=== PATIENT | male | born 1960 | race Caucasian/White ===

== ENCOUNTER 2018-02-01 08:54 | Day surgery (SDC) | payer BC ==
[2018-01-25 09:59] LABS: HEMATOCRIT 43.7 % (37.9-51.0); HEMOGLOBIN 15.2 g/dL (13.5-17.0); MEAN CORPUSCULAR HEMOGLOBIN 31.2 pg (27.0-33.4); MEAN CORPUSCULAR HGB CONC 34.7 g/dL (32.0-36.0); MEAN CORPUSCULAR VOLUME 90 fl (80-97); PLATELET COUNT 227 10^3/uL (150-450); RED BLOOD COUNT 4.86 10^6/uL (4.35-5.55); RED CELL DISTRIBUTION WIDTH 12.7 % (11.5-14.0); WHITE BLOOD COUNT 4.5 10^3/uL (4.0-10.5)
--- NOTE | 2018-01-25 10:37 | RADIOLOGY REPORT (SQ) ---
EXAM DESCRIPTION: CHEST PA/LATERAL COMPLETED DATE/TIME: 01/25/2018 10:01 am REASON FOR STUDY: PRE-OP COMPARISON: None. EXAM PARAMETERS: NUMBER OF VIEWS: two views TECHNIQUE: Digital Frontal and Lateral radiographic views of the chest acquired. RADIATION DOSE: NA LIMITATIONS: none FINDINGS: LUNGS AND PLEURA: No opacities, masses or pneumothorax. No pleural effusion. MEDIASTINUM AND HILAR STRUCTURES: No masses or contour abnormalities. HEART AND VASCULAR STRUCTURES: Heart normal size. No evidence for failure. BONES: No acute findings. HARDWARE: None in the chest. OTHER: No other significant finding. IMPRESSION: NO SIGNIFICANT RADIOGRAPHIC FINDING IN THE CHEST. TECHNICAL DOCUMENTATION: JOB ID: [id number] [employer]- All Rights Reserved Reading location - IP/workstation name: [email or web address]
--- NOTE | 2018-01-25 13:31 | EKG REPORT ---
SEVERITY:- NORMAL ECG - SINUS RHYTHM : Confirmed by: Emeka Serna MD 25-Jan-2018 13:31:15
[~2018-02-01 08:54] MED LIST: ACETAMINOPHEN 325 MG TABLET PO PRN; CEFAZOLIN 2 GM/D5W RTU 2 GM/50 ML RTUPB IV PRN; LACTATED RINGERS 1000 ML IV PRN
[2018-02-01] MEDS ORDERED: FENTANYL CITRATE INJ/PF 250 MCG/5 ML AMPULE ONE (12:49)
[2018-02-01] MEDS ORDERED: ACETAMINOPHEN 1,000 MG/100 ML RTUPB IV ONE (12:50)
[2018-02-01] MEDS ORDERED: EPHEDRINE SULFATE INJ 50 MG/1 ML AMPULE ONE (12:50)
[2018-02-01] MEDS ORDERED: PROPOFOL INJ 200 MG/20 ML VIAL IV ONE (12:50)
[2018-02-01] MEDS ORDERED: MIDAZOLAM 2 MG/2 ML INJ ONE (12:50)
[2018-02-01] MEDS ORDERED: LIDOCAINE 2% INJ-PF (20 MG/ML) 10 ML AMPUL ONE (12:58)
[2018-02-01] MEDS ORDERED: BUPIVACAINE HCL 0.25 % INJ/PF (2.5 MG/1 ML) 30 ML VIAL ONE (13:13)
[2018-02-01] MEDS ORDERED: PROMETHAZINE HCL INJ 25 MG/1 ML VIAL IV PRN ×2 (14:08)
[2018-02-01] MEDS ORDERED: OXYCODONE-ACETAMINOPHEN 5-325 MG TABLET PO PRN ×2 (14:08)
[2018-02-01] MEDS ORDERED: FENTANYL CITRATE INJ/PF 100 MCG/2 ML AMPUL IV PRN ×3 (14:08)
[2018-02-01] MEDS ORDERED: DIPHENHYDRAMINE HCL 50 MG/ML VIAL IV PRN (14:08)
[2018-02-01] MEDS ORDERED: MORPHINE SULFATE 10 MG/ML INJ IV PRN (14:08)
[2018-02-01] MEDS ORDERED: MEPERIDINE HCL/PF INJ 25 MG/1 ML DISP.SYRIN IV PRN (14:08)
[2018-02-01] MEDS ORDERED: ONDANSETRON HCL INJ/PF 4 MG/2 ML SDV IV PRN (14:08)
[2018-02-01] MEDS ORDERED: NEOSTIGMINE METHYLSULFATE 10 MG/10 ML VIAL ONE (14:45)
[2018-02-01] MEDS ORDERED: KETOROLAC TROMETHAMINE 60 MG/2 ML SDV ONE (14:45)
[2018-02-01] MEDS ORDERED: ONDANSETRON HCL INJ/PF 4 MG/2 ML SDV ONE (14:45)
[2018-02-01] MEDS ORDERED: VECURONIUM BROMIDE INJ 10 MG VIAL IV ONE (14:45)
[2018-02-01] MEDS ORDERED: SUCCINYLCHOLINE CHLORIDE INJ 200 MG/10 ML VIAL ONE (14:45)
[2018-02-01] MEDS ORDERED: GLYCOPYRROLATE 1 MG/5 ML SYRINGE ONE (14:45)
[2018-02-01] MEDS ORDERED: DEXAMETHASONE SOD PHOSPHATE INJ 4 MG/1 ML VIAL ONE (14:45)
[2018-02-01] MEDS: FENTANYL CITRATE INJ/PF 100 MCG/2 ML AMPUL ONE ×2 (15:36→15:49)
--- NOTE | 2018-02-01 15:47 | Discharge Summary ---
Discharge Summary (SDC) - Discharge Final Diagnosis: Bilateral inguinal hernia Date of Surgery: 02/01/18 Discharge Date: 02/01/18 Condition: Stable Discharge Diet: As Tolerated Respiratory Treatments at Home: Deep Breathing/Coughing, Incentive Spirometer Discharge Activity: No Lifting Over 10 Pounds Home Care Assistance: None Needed Report the Following to Your Physician Immediately: Shortness of Breath, Nausea , Vomiting, Increase in Pain, Fever over 101 Degrees, Unusual Bleeding, Redness , Swelling, Warmth
--- NOTE | 2018-02-01 15:56 | Operative Report ---
Nonrecallable Operative Report DATE OF SURGERY: 02/01/18 PREOPERATIVE DIAGNOSIS: Bilateral inguinal hernia POSTOPERATIVE DIAGNOSIS: Bilateral indirect inguinal hernia OPERATION: Robot-assisted laparoscopic bilateral inguinal hernia repair with mesh. SURGEON: HARRISON BURTON ANESTHESIA: GA TISSUE REMOVED OR ALTERED: None COMPLICATIONS: None apparent ESTIMATED BLOOD LOSS: Minimal PROCEDURE: Drains/implants: Right and left large 3 DMax inguinal hernia mesh. Procedure in detail: After informed consent was obtained, the patient was laid in the supine position. The abdomen was prepped and draped in a normal sterile fashion. A 15 blade scalpel was used to create a supraumbilical incision. This was deepened through the use of sharp and blunt dissection. The linea alba fascia was incised sharply, and the abdomen was entered sharply. The balloon trocar was inserted, and pneumoperitoneum was achieved. 2 8 mm trochars were placed in the right and left lateral abdominal wall under direct laparoscopic visualization. The robot was then brought over the patient and docked. I then assumed my position at the surgeon's console. Attention was turned to the right groin. The peritoneum was scored 2-3 cm superior to the indirect inguinal hernia defect. A preperitoneal dissection was then undertaken. The hernia sac was freed from the cord structures, taking great care not to injure the cord structures. Once the hernia sac was freed, a large right-sided 3D max inguinal hernia mesh was placed into the preperitoneal space. The mesh was situated over the defect. It was sutured medially and superiorly using 2-0 Vicryl suture. The peritoneum was then closed using 2 -0 V lock suture in simple running fashion. Once this was complete, the repair was inspected. The right inguinal hernia repair appeared in good order. Attention was then turned to the left groin. The peritoneum was scored 2-3 cm superior to the left indirect inguinal hernia defect. The preperitoneal dissection was undertaken. The hernia sac was freed from the cord structures. The dissection of the sac was undertaken very carefully, so as not to injure the cord structures. Once the hernia sac was adequately freed, a left-sided 3 DMax inguinal hernia mesh was placed into the preperitoneal space. It was sutured to the abdominal wall medially and superiorly. Once this was complete, the peritoneum was closed using V lock suture, 2-0 in size. The left inguinal hernia repair appeared in good order. The robot was then undocked, and the trocars were removed. Pneumoperitoneum was relieved. The supraumbilical fascia was closed using 0 Vicryl suture in [id number] fashion. The overlying skin was closed using 4-0 Vicryl Rapide suture in subcuticular fashion. All sponge, instrument, and needle counts were correct 2. Condition: Stable.
[2018-02-01] MEDS ORDERED: HYDROCODONE/ACETAMINOPHEN 10-325 MG TABLET ONE (16:34)
[2018-02-01 17:49] VITALS: BP 136/79
== END 2018-02-01 17:35 | disposition home or self-care (01) ==
LOC: OROUT 08:54
PROVIDERS: ATTEND Surgery
DX: K40.20 Bilateral inguinal hernia, without obstruction or gangrene, not specified as recurrent (principal); Z87.442 Personal history of urinary calculi; Z01.818 Encounter for other preprocedural examination
CPT/HCPCS: 49650; S2900; 36415; 71046; 840; 85027; 93005; 93010; J0131; J0330; J0690; J1100; J1885; J2250; J2405; J2704; J3010; J3490